=== PATIENT | female | born 1995 | race African-American/Black ===

== ENCOUNTER 2018-02-15 00:09 | Emergency (ER) | payer MEDICAID, SELFPAY ==
[2018-02-15] MEDS ORDERED: Ketorolac Tromethamine 60 MG/2 ML VIAL ONE (00:40)
== END 2018-02-15 01:00 | disposition home or self-care (01) ==
LOC: ERS 00:09
DX: M54.6 Pain in thoracic spine (principal); M25.512 Pain in left shoulder
CPT/HCPCS: 96372; J1885

== ENCOUNTER 2019-02-24 11:41 | Emergency (ER) | payer SELFPAY ==
[2019-02-24 13:52] LABS: Bacteria/HPF None Seen HPF (None Seen); Bilirubin Negative (Negative); Blood, Urine Negative (Negative); Clarity Clear (Clear); Glucose, Urine (Dipstick) Normal (Negative); Leukocyte 75 Leu/uL (Negative); Nitrite Negative (Negative); Protein, Urine (Dipstick) Negative (Neg-Trace); RBC/HPF 0-3 HPF (0-3); Urobilinogen Normal mg/dL (Less than 2); WBC/HPF 0-3 HPF (0-3)
[2019-02-24 13:57] LABS: Pregnancy Test - Urine (BHCG) Negative (Negative); Pregu Control Background? CLEAR/WHITE (CLR/WHITE); Pregu Control Bar Appear? YES (CONTROL BAR); Specific Gravity 1.022 (1.002-1.036)
== END 2019-02-24 14:14 | disposition home or self-care (01) ==
LOC: ERS 11:41
DX: R10.11 Right upper quadrant pain (principal)
CPT/HCPCS: 81003; 81015; 81025; 87077; 87086; 99284

== ENCOUNTER 2023-01-21 18:28 | Emergency (ER) | payer OTHER, SELFPAY ==
[2023-01-21 18:53] LABS: #Eosinphils 0.1 thou/uL (0.0-0.7); #Monocytes 0.5 thou/uL (0.11-0.59); #Neutrophils 4.2 thou/uL (1.40-6.50); %Basophils 0.5 % (0.0-1.0); %Eosinophils 1.9 % (0.0-10.0); %Lymphocytes 23.8 % (21.0-51.0); %Monocytes 8.3 % (0.0-10.0); %Neutrophils 65.3 % (42.0-75.0); Hematocrit 38.9 % (36.0-47.0); Mean Corpuscular HGB CONC 30.8 g/dL (32.0-36.0); Mean Corpuscular Hemoglobin 26.8 pg (27.0-31.0); Mean Platelet Volume 11.9 fL (7.4-10.4); Platelet Count 280 10x3/uL (130-400); RBC Distribution Width 14.3 % (11.5-14.5); Red Blood Cell (RBC) Count 4.47 mill/uL (4.20-5.40); White Blood Cell (WBC) Count 6.5 10x3/uL (4.8-10.8)
[2023-01-21 19:02] LABS: BHCG - Serum Negative (NEGATIVE); Pregs Control Background? CLEAR/WHITE (CLR/WHITE); Pregs Control Bar Appear? YES (CONTROL BAR)
[2023-01-21 19:16] LABS: ALT (SGPT) 14 U/L (8-55); AST (SGOT) 12 U/L (5-34); Albumin 4.6 g/dL (3.5-5.0); Alkaline Phosphatase 74 U/L (40-110); Anion Gap 14 mmol/L (10-20); BUN (Urea Nitrogen) 10 mg/dL (7.0-18.7); Bilirubin, Total 0.5 mg/dL (0.2-1.2); Calc. Creatinine Clearance 0 mL/min (70-130); Calcium 10.1 mg/dL (7.8-10.44); Carbon Dioxide 26 mmol/L (22-29); Chloride 105 mmol/L (98-107); Estimated GFR 95; Globulin 2.7 g/dL (2.4-3.5); Glucose 87 mg/dL (70-105); Potassium 3.7 mmol/L (3.5-5.1); Protein, Total 7.3 g/dL (6.0-8.3); Sodium 141 mmol/L (136-145)
[2023-01-21 19:40] LABS: Bilirubin Negative (Negative); Blood, Urine Negative (Negative); CAUTI Indications for Culture Fever or rigors; Clarity Turbid (Clear); Glucose, Urine (Dipstick) Normal (Negative); Ketone, Urine Trace mg/dL (Negative); Leukocyte 500 Leu/uL (Negative); Mucous/LPF Rare LPF (<2+); Nitrite Negative (Negative); Protein, Urine (Dipstick) 30 mg/dL (Neg-Trace); Specific Gravity, Urine 1.023 (1.002-1.036); WBC/HPF Greater than 50 HPF (0-3)
[2023-01-21 19:54] LABS: Bacteria/HPF 2+ HPF (None Seen); Trichomonas/HPF 1+ HPF (None Seen)
[2023-01-21 19:55] LABS: Urine Culture Reflex Yes Yes
[2023-01-21] MEDS ORDERED: Lidocaine 1% PF 5 ML VIAL ONE (20:11)
[2023-01-21] MEDS ORDERED: cefTRIAXone (ROCEPHIN) 500 MG VIAL ONE (20:11)
== END 2023-01-21 20:30 | disposition home or self-care (01) ==
LOC: ERS 18:28
DX: R55 Syncope and collapse (principal); N39.0 Urinary tract infection, site not specified; A59.9 Trichomoniasis, unspecified; I10 Essential (primary) hypertension
CPT/HCPCS: 36415; 71046; 80053; 81001; 84703; 85025; 87086; 93005; 96372; J0696

== ENCOUNTER 2023-03-03 18:47 | Emergency (ER) | payer BC, OTHER, SELFPAY ==
[2023-03-03] MEDS ORDERED: Ondansetron ODT 4 MG TAB ONE (20:11)
[2023-03-03] MEDS ORDERED: Ibuprofen 200 MG TAB ONE (20:11)
== END 2023-03-03 20:51 | disposition home or self-care (01) ==
LOC: ERS 18:47
DX: R51.9 Headache, unspecified (principal); R11.0 Nausea; I10 Essential (primary) hypertension
CPT/HCPCS: 99283; Q0162

== ENCOUNTER 2024-03-31 10:37 | Emergency (ER) | payer BC, MEDICAID ==
[2024-03-31 11:54] LABS: Hematocrit 33.5 % (36.0-47.0); Hemoglobin 10.5 g/dL (12.0-16.0); Mean Corpuscular HGB CONC 31.3 g/dL (32.0-36.0); Mean Corpuscular Hemoglobin 25.5 pg (27.0-31.0); Mean Corpuscular Volume 81.5 fL (78.0-98.0); Mean Platelet Volume 10.6 fL (7.4-10.4); Platelet Count 393 10x3/uL (130-400); RBC Distribution Width 14.1 % (11.5-14.5); Red Blood Cell (RBC) Count 4.11 mill/uL (4.20-5.40)
[2024-03-31 11:57] LABS: BHCG - Serum Negative (NEGATIVE); Pregs Control Background? CLEAR/WHITE (CLR/WHITE); Pregs Control Bar Appear? YES (CONTROL BAR)
[2024-03-31 12:03] LABS: ALT (SGPT) 7 U/L (8-55); AST (SGOT) 9 U/L (5-34); Albumin 3.7 g/dL (3.5-5.0); Alkaline Phosphatase 57 U/L (40-110); Anion Gap 9 mmol/L (10-20); BUN (Urea Nitrogen) 10 mg/dL (7.0-18.7); Bilirubin, Total 0.3 mg/dL (0.2-1.2); Calc. Creatinine Clearance 0 mL/min (70-130); Calcium 9.3 mg/dL (7.8-10.44); Carbon Dioxide 27 mmol/L (22-29); Chloride 103 mmol/L (98-107); Estimated GFR 112; Globulin 4.3 g/dL (2.4-3.5); Glucose 89 mg/dL (70-105); Lipase 10 U/L (8-78); Sodium 135 mmol/L (136-145)
[2024-03-31 12:25] LABS: Band 2 % (5-11); Burr Cells SLIGHT = 2-5 cells HPF (0-1); Hypochromia SLIGHT = 6-15 cells HPF (0-5); Large Platelets 9.1 % (0-5); Lymphocytes 22 % (21-51); Monocytes 5 % (0-10); Neutrophil 70 % (42-75); Ovalocytes SLIGHT = 2-5 cells HPF (0-1); Platelet Adequacy Comment Platelets Normal; Polychromasia SLIGHT = 2-3 cells HPF (0-2)
[2024-03-31 12:36] LABS: Bacteria/HPF None Seen HPF (None Seen); Bilirubin Negative (Negative); Blood, Urine 3+ (Negative); CAUTI Indications for Culture Dysuria,urgency,freq; Clarity Clear (Clear); Glucose, Urine (Dipstick) Normal (Negative); Ketone, Urine Negative (Negative); Leukocyte 500 Leu/uL (Negative); Nitrite Negative (Negative); Protein, Urine (Dipstick) Negative (Neg-Trace); Specific Gravity, Urine 1.018 (1.002-1.036); Squamous Epithelial 0-3 HPF (0-3); Urobilinogen Normal mg/dL (Less than 2); WBC/HPF 21-50 HPF (0-3)
[2024-03-31 12:37] LABS: Urine Culture Reflex Yes Yes
== END 2024-03-31 13:27 | disposition home or self-care (01) ==
LOC: ERS 10:37
DX: N83.209 Unspecified ovarian cyst, unspecified side (principal); K59.00 Constipation, unspecified; I10 Essential (primary) hypertension
CPT/HCPCS: 36415; 74176; 80053; 81001; 83690; 84703; 85025; 87077; 87086

== ENCOUNTER 2025-02-28 09:04 | Emergency (ER) | payer BC, MEDICAID, OTHER | END 2025-02-28 11:05 | disposition home or self-care (01) | LOC: ERS 09:04 | DX: J06.9 Acute upper respiratory infection, unspecified (principal) | CPT/HCPCS: 99283 ==